=== PATIENT | female | born 1960 | race Two or more races ===

== ENCOUNTER 2020-01-21 10:13 | Emergency (ER) | payer SELFPAY ==
[~2020-01-21] VITALS: Ht 152.4 cm; Wt 108.9 kg
[2020-01-21] MEDS ORDERED: hydrOXYchloroQUINE SULFATE 200 MG TAB PO ONE (11:15)
[2020-01-21 12:15] VITALS: BP 118/69
== END 2020-01-21 12:19 | disposition home or self-care (01) ==
LOC: ER 10:13
DX: U07.1 COVID-19 (principal); J18.9 Pneumonia, unspecified organism
CPT/HCPCS: 71045; 99284; U0003